=== PATIENT | male | born 1995 | race Caucasian/White ===

== ENCOUNTER 2024-07-11 08:32 | Emergency (ER) | payer OTHER ==
[2024-07-11 08:50] VITALS: BP 135/80; PULSE 75; RESP 18; TEMP 98.1; BMI 35.7
[2024-07-11] MEDS ORDERED: KETOROLAC TROMETHAMINE 30 MG/1 ML VIAL ONE (09:03)
[2024-07-11] MEDS ORDERED: LIDOCAINE 5% TOPICAL PATCH ONE (09:04)
[2024-07-11] MEDS: KETOROLAC TROMETHAMINE 15 MG/ML VIAL IM ONE (09:13)
[2024-07-11] MEDS: LIDOCAINE 5% TOPICAL PATCH TP ONE (09:14)
[2024-07-11] MEDS ORDERED: LIDOCAINE PATCH REMOVAL MC SCH (22:00)
== END 2024-07-11 10:05 | disposition home or self-care (01) ==
LOC: FER 08:32
PROC: 3E0133Z Introduction of Anti-inflammatory into Subcutaneous Tissue, Percutaneous Approach (ICD-10-PCS; principal; 2024-07-11)
DX: M54.2 Cervicalgia (principal); F41.9 Anxiety disorder, unspecified; V49.40XA Driver injured in collision with unspecified motor vehicles in traffic accident, initial encounter
CPT/HCPCS: 99284-25